=== PATIENT | female | born 1990 | race Two or more races ===

== ENCOUNTER → 2018-11-02 | Outpatient (CLI) | payer OTHER ==
--- NOTE | 2018-11-02 10:46 | KCIC ---
PELVIS W/TV: 11/02/2018 9:00 AM INDICATION: 27 years old Female. Portosystemic ovarian syndrome. Abnormal CT with moderate fluid in the cul-de-sac.. COMPARISON: CT abdomen/pelvis October 22, 2018. TECHNIQUE: Transabdominal and transvaginal sonographic evaluation of the pelvis was performed. FINDINGS: Grayscale, color Doppler and spectral waveform analysis were utilized. UTERUS: Uterus is retroflexed. Size: 10.5 x 4.2 x 6.0 cm. Masses: None. Endometrium: 4 mm. RIGHT OVARY: 2.2 x 1.4 x 2.2 cm. Normal in appearance with arterial and venous waveform identified at time of imaging. LEFT OVARY: 2.5 x 1.8 x 2.7 cm. There is a 1.8 x 1.3 x 1.7 cm lesion in the left adnexa with a thin septation. Arterial and venous waveform identified at the time of imaging. FREE FLUID: Moderate simple free fluid is identified within the pelvis. URINARY BLADDER: Unremarkable. IMPRESSION: 1. There is a cystic lesion in the left adnexa measuring 1.8 x 1.3 x 1.7 cm a thin septation. Consideration may be given for a complicated cyst versus hemorrhagic cyst versus less likely an endometrioma. 2. Moderate amount of free fluid is identified within the pelvis which appears simple. Etiology is indeterminate. Correlate with beta-hCG. Short-term follow-up pelvic ultrasound may be of benefit. Electronically signed by: Danielle Pineda MD (11/02/2018 10:41 AM) [id number]
== END | disposition home or self-care (01) ==
LOC: KCIC US 08:23
PROVIDERS: ATTEND Obstetrics & Gynecology
DX: N83.8 Other noninflammatory disorders of ovary, fallopian tube and broad ligament (principal); Z87.59 Personal history of other complications of pregnancy, childbirth and the puerperium
CPT/HCPCS: 76830; 76856